=== PATIENT | male | born 1975 | race Caucasian/White ===

== ENCOUNTER 2016-10-02 08:43 | Emergency (ER) | payer OTHER ==
[~2016-10-02] VITALS: Wt 147.0 kg
[~2016-10-02 08:43] MED LIST: CHOL2000 PO; DIPH25TA68 PO; EPIN0.3P4 IM; FAMO20TA18 PO; GABA-526 PO; GLIP5TAB13 PO; METF850T PO; PRED20TA PO; SITA100T8 PO; ZIPR60CA6 PO
--- NOTE | 2016-10-02 10:20 | ERD ---
ER Documentation Chief Complaint Date/Time DATE: 10/02/16 TIME: 10:12 Chief Complaint pt awoke at 0600 with difficulty speaking due to involuntary tongue movemen HPI 41-year-old male presents to ED with symptoms of tongue sticking out and unable to speak clearly on and off for the last 4 hours. Patient stated that he had these symptoms once before, was given a EpiPen at that time. That was 1 year ago. Denies any tongue swelling, denies shortness of breath. Patient has history of diabetes is on insulin. He also has history of schizophrenia, is taking Geodon for many years. Denies exposure to new foods or new cleaning products. ROS All systems reviewed and are negative except as per history of present illness. Medications Home Meds Active Scripts Diphenhydramine Hcl (Benadryl Allergy) 25 Mg Tablet, 25 MG PO Q8 for 7 Days Prov:XIMENA LARA DO 03/31/15 Epinephrine (Epipen 2-Rajinder) 0.3 Mg/0.3 Ml Pen.injctr, 0.3 MG IM DIRECTED Y for ALLERGIC REACTION, #1 EA Prov:XIMENA LARA DO 03/31/15 Famotidine* (Famotidine*) 20 Mg Tablet, 20 MG PO BID, #30 TAB Prov:XIMENA LARA DO 03/31/15 Prednisone* (Prednisone*) 20 Mg Tab, 40 MG PO DAILY for 4 Days, TAB Prov:XIMENA LARA DO 03/31/15 Reported Medications Metformin Hcl* (Metformin Hcl*) 850 Mg Tablet, 850 MG PO BID WITH MEALS, TAB 03/31/15 Cholecalciferol* (Vitamin D3*) 2,000 Unit Cap, 2000 UNIT PO DAILY, CAP 03/31/15 Glipizide* (Glipizide*) 5 Mg Tablet, 5 MG PO BID, TAB 03/31/15 Ziprasidone* (Geodon*) 60 Mg Capsule, 60 MG PO BID, CAP 03/31/15 Gabapentin* (Gabapentin*) 600 Mg Tablet, 600 MG PO QHS, TAB 03/31/15 Sitagliptin* (Januvia*) 100 Mg Tablet, 100 MG PO DAILY, TAB 03/31/15 Allergies Allergies: Coded Allergies: No Known Allergy (Unverified , 03/31/15) PMhx/Soc History of Surgery: No Hx Cardiac Disorders: Yes Hx Psychiatric Problems: Yes (schizophrenia) Hx Alcohol Use: Yes Hx Substance Use: No Hx Tobacco Use: No Smoking Status: Former smoker Physical Exam Vitals Vital Signs Date Time Temp Pulse Resp B/P Pulse Ox O2 Delivery O2 Flow Rate FiO2 10/02/16 08:48 98.0 96 20 132/59 99 Physical Exam General impression: Well-developed, well-nourished. Alert, oriented, in no acute distress. Head: Normocephalic, atraumatic. Eyes: PERRL, EOM normal. Conjunctiva not injected. ENT: External canals clear. TM's pearly spencer. Nasal mucosa, oral mucosa and oropharynx are normal. Able to move his tongue in all directions on command. He is observed to alternately speak clearly, and speaking with no or little tongue movement. Neck: Supple, nontender. No lymphanopathy. No nuchal rigidity. Respiration: Normal respiratory effort. Lungs clear to auscultate bilaterally. No wheezes, rales or rhonchi. Cardiovascular: Regular rate and rhythm. No murmurs or extra heart sounds. Neuro: Mental status normal, speech normal. BULK STATION AGENT grossly intact. Skin: Normal turgor. No rash or lesions. Psych: Normal mood and affect. Procedures/MDM 41-year-old male with history of diabetes schizophrenia present ED with not able to move his tongue while speaking. On exam, he does not have any purposeful movement disorder. However he is observed to alternately able to speak normally, and speaking with little or no time movement. Given patient has multiyear history of Geodon use, I suspect this is one form of tardive dyskinesia. Patient does not have any airway swelling or shortness of breath. I doubt anaphylaxis or other allergic reaction. Patient advised to follow-up with his psychiatrist and PCP for further evaluation and treatment. Patient appears well, stable for discharge and outpatient management. Medical decision making shared with patient and family. Education provided to patient and family. Patient and family expressed understanding of the plan. Medications on discharge: None. Follow-up: Primary care provider in 2-3 days or return to ED if worse. Departure Diagnosis: Primary Impression: Tardive dyskinesia Condition: Stable Patient Instructions: Schizophrenia, General Referrals: [facility] Usted se contreras hecho un examen mdico de control que le indica que no est en lorena condicin que requiera tratamiento urgente en el Departamento de Emergencia. Un estudio ms profundo y el tratamiento de levine condicin pueden esperar sin ningn riesgo hasta que usted sea atendida/o en el consultorio de levine mdico o lorena cl berta. Es responsabilidad suya arreglar loerna rafat para el seguimiento del rohini. MANEJO DE CONDICIONES NO URGENTES EN EL FUTURO 1) Si usted tiene un mdico de atencin primaria: Usted debera llamar a levine mdico de atencin primaria antes de venir al departamento de emergencia. Despus de las horas de consultorio, levine doctor o levine asociado/a est disponible por telfono. El mdico o enfermero de bandar en el servicio telefnico puede asesorarle por blaire medio para atender el problema, o rohini contrario se puede programar lorena rafat. 2) Si usted no tiene un mdico de atencin primaria: Llame al mdico o clnica de referencia que aparece abajo richie las horas de consultorio para hacer lorena rafat para que le vean. CLINICAS: [facility] [phone] [facility] [phone] [facility]. [facility] [phone] [facility] [place] [id number] [phone] [facility] [place] [id number] [phone] [facility]. [phone] [address] Additional Instructions: Llame al doctor MAANA y christiano lorena RAFAT PARA DENTRO DE 2-3 BERNABE.Dgale a la secretaria que nosotros le instruimos hacer esta rafat.Avise o llame si levine condicin se empeora antes de la rafat. Regresa aqui si peor o no mejor. GABBI LAMAR. LALO Oct 02, 2016 10:19
[2016-10-03] MEDS ORDERED: ASPI-664 PO (13:50)
== END 2016-10-02 10:20 | disposition home or self-care (01) ==
LOC: FTE 08:43
DX: G24.01 Drug induced subacute dyskinesia (principal); E11.9 Type 2 diabetes mellitus without complications; T43.595A Adverse effect of other antipsychotics and neuroleptics, initial encounter; Z87.891 Personal history of nicotine dependence; Z79.4 Long term (current) use of insulin; Z79.84 Long term (current) use of oral hypoglycemic drugs
CPT/HCPCS: 99282

== ENCOUNTER 2016-10-02 17:21 | Inpatient (IN) | payer OTHER ==
[~2016-10-02] VITALS: Ht 180.3 cm; Wt 156.9 kg
[2016-10-02 23:15] VITALS: BP 112/63; RESP 18
[2016-10-02 23:16] VITALS: PULSE 89
[2016-10-02 23:33] VITALS: Ht 180.3 cm; Wt 156.9 kg
[2016-10-03] VITALS (8 sets, daily range): BP systolic 117–131; BP diastolic 64–76; PULSE 83–98; RESP 16–18
[2016-10-03] MEDS ORDERED: GLUCOSE GEL 15 GRAM TUBE PO PRN ×2 (00:30)
[2016-10-03] MEDS ORDERED: GLUCOSE GEL 15 GRAM TUBE BUCCAL PRN (00:30)
[2016-10-03] MEDS ORDERED: DEXTROSE 50% 50 ML SYRINGE IV PRN ×2 (00:30)
[2016-10-03] MEDS ORDERED: GLUCAGON 1 MG INJ IM PRN (00:30)
[2016-10-03] MEDS ORDERED: ACCUCHECK XX SCH (02:00)
[2016-10-03] MEDS ORDERED: DIPHENHYDRAMINE 25 MG CAP PO SCH (06:00)
[2016-10-03] MEDS ORDERED: DIPHENHYDRAMINE 25 MG CAP PO PRN (06:00)
[2016-10-03 07:12] LABS: BASOPHILS % 0.4 % (0.0-2.0); EOSINOPHILS # 0.1 10^3/ul (0.0-0.5); EOSINOPHILS % 1.2 % (0.0-7.0); HEMATOCRIT 43.7 % (42.0-52.0); HEMOGLOBIN 14.9 g/dl (14.0-18.0); LYMPHOCYTES # 1.7 10^3/ul (0.8-2.9); LYMPHOCYTES % 16.2 % (15.0-51.0); MEAN CORPUSCULAR HEMOGLOBIN 31.5 pg (29.0-33.0); MEAN CORPUSCULAR HGB CONC 34.1 g/dl (32.0-37.0); MEAN CORPUSCULAR VOLUME 92.2 fl (82.0-101.0); MONOCYTE # 0.5 10^3/ul (0.3-0.9); MONOCYTES % 4.8 % (0.0-11.0); NEUTROPHIL # 8.2 10^3/ul (1.6-7.5); NEUTROPHILS % 77.4 % (39.0-77.0); PLATELET COUNT 285 10^3/UL (140-440); RED BLOOD COUNT 4.74 10^6/ul (4.70-6.10); UNCORRECTED WBC 10.6 10^3/ul (4.8-10.8); WHITE BLOOD COUNT 10.6 10^3/ul (4.8-10.8)
[2016-10-03 07:18] LABS: CONDITION 1
[2016-10-03 07:19] LABS: POTASSIUM 4.3 mmol/L (3.5-5.1)
[2016-10-03 07:21] LABS: CREATININE 0.59 mg/dl (0.61-1.24)
[2016-10-03 07:22] LABS: CALCIUM 8.7 mg/dl (8.4-10.2); MAGNESIUM 1.8 mg/dl (1.7-2.5)
[2016-10-03] MEDS ORDERED: metFORMIN 850 MG TAB PO SCH (07:55)
[2016-10-03] MEDS: INSULIN ASPART [NOVOLOG] 3 ML PEN SC SCH ×2 (08:00→11:30)
[2016-10-03] MEDS ORDERED: LINAGLIPTIN 5 MG TABLET PO SCH (09:00)
[2016-10-03] MEDS ORDERED: NICOTINE (21 MG/24 HR) PATCH TRANSDERM SCH (09:00)
[2016-10-03] MEDS ORDERED: ZIPRASIDONE 20 MG CAP PO SCH (09:00)
[2016-10-03] MEDS ORDERED: CHOLECALCIFEROL 2,000 UNIT CAP PO SCH (09:00)
[2016-10-03] MEDS ORDERED: ENOXAPARIN 40 MG/0.4 ML SYG SC SCH (09:00)
[2016-10-03] MEDS ORDERED: glipiZIDE 5 MG TAB PO SCH (09:00)
[2016-10-03] MEDS ORDERED: FAMOTIDINE 20 MG TAB PO SCH (09:00)
--- NOTE | 2016-10-03 09:16 | RADRPT ---
PROCEDURE: US Carotids. CLINICAL INDICATION: bruit , TIA TECHNIQUE: Multiple sonographic of the carotid bifurcation region and vertebral arteries were obta ined utilizing chambers scale, duplex and color-flow imaging. The images were reviewed on a PACS worksta tion. COMPARISON: No prior studies are available for comparison. FINDINGS: Evaluation of the right carotid bifurcation region reveals no significant calcific atherosclerotic d isease. Evaluation of the left carotid bifurcation region reveals no significant calcific atherosclerotic di sease. There is antegrade flow within the vertebral arteries bilaterally. RIGHT CAROTID MEASUREMENTS: Common Carotid [id number] (cm/sec) Internal Carotid Artery - [id number] (cm/sec) Internal Carotid Artery - mid68 (cm/sec) Internal Carotid Artery - (cm/sec) Internal Carotid/Common Carotid0.6 LEFT CAROTID MEASUREMENTS: Common Carotid Rfjzxg70 (cm/sec) Internal Carotid Artery - [id number] (cm/sec) Internal Carotid Artery - mid82 (cm/sec) Internal Carotid Artery - ikdllk20 (cm/sec) Internal Carotid/Common Carotid0.8 RPTAT: AA IMPRESSION: No evidence for hemodynamically significant stenosis in the bilateral internal carotid arteries - va lidated velocity measurements with angiographic measurements, velocity criteria are extrapolated fro m diameter data as defined by the Society of Radiologists in Ultrasound Consensus Conference Radiolo gy 2003; 229;340-346. This study does indirectly reference the measurement of the distal ICA diamet er as the denominator for stenosis measurement. Normal antegrade flow in the vertebral arteries bilaterally. .Stevo Lofton MD, MD Date Time Electronically viewed and signed by .Stevo Lofton MD, on 10/03/2016 09:15 .S/
--- NOTE | 2016-10-03 09:51 | HP ---
DATE OF ADMISSION: 10/02/2016 PRESENTING COMPLAINT: Slurred speech and headache. HISTORY OF PRESENTING COMPLAINT: This is a 41-year-old obese male with a past medical history of di abetes and schizophrenia and reports that early in the morning on the at about 6:00 a.m. he was outside, he had just had a cigarette and as he was returning into his home he started feeling normal in his tongue and felt his tongue swelling and developed dizziness as well as headache and family n oted slurred speech. Symptoms did not immediately resolve, but lasted a couple of hours until he go t to the emergency room at [facility], where he was assessed and scaled by NIS test stroke score as a 0. By that time he was feeling much better; however, there was concern for a TIA and since he was capitated to our hospital he was transferred to us for further workup and management. Initial evalua tion over there basically was negative for an acute stroke, but his urine tox screen was positive fo r amphetamines and his potassium level was found to be mildly elevated. PAST MEDICAL HISTORY: 1. Diabetes mellitus type 2. 2. Schizophrenia. 3. Chronic methamphetamine and marijuana user as well as tobacco. 4. Chronic diabetic neuropathy. 5. History of tongue swelling and numbness at least twice in the past, for which he has been seen i n our emergency room here and treated for allergies. PAST SURGICAL HISTORY: Patient denies. ALLERGIES: HE HAS NO KNOWN DRUG ALLERGIES. SOCIAL HISTORY: Essentially summarized above, positive for cocaine, marijuana and meth use, but no heroin use. REVIEW OF SYSTEMS: I did 12-point review of system, he has had no fever. He had no focal deficits. He had no numbness in the extremities that was new. He has no loss of bowel or bladder function. Denies palpitations as well. Denies abdominal pain. Denies nausea, denies vomiting, denies black s tools. Denies dysuria, also denies hematuria. FAMILY HISTORY: Positive for diabetes and high blood pressure. HOME MEDICATIONS: List reviewed and reconciled per medical records. PHYSICAL EXAMINATION: VITAL SIGNS: Temperature 98.5, pulse 101, respirations 17, blood pressure 117/64, saturations 94% o n room air. GENERAL: Obese male, alert and oriented, in no distress. HEENT: Head is normocephalic. Pupils are equal and reactive. Mucous membranes are moist. Tongue is not swollen at this time. Posterior pharynx is clear of exudate. Speech clear. There is no fac ial asymmetry. NECK: Supple, nontender. No JVD. CHEST: With reduced air entry, but this is likely secondary to his habitus without crackles or whee zing. CARDIOVASCULAR: S1 and 2 without murmurs. ABDOMEN: Obese, soft, nontender, nondistended with normoactive bowel sounds. EXTREMITIES: No lower extremity edema. NEUROLOGIC: No gross focal deficits. SKIN: No rash or jaundice. LABORATORY VALUES: I reviewed the labs that were sent to us from [facility] and as m entioned, a urine drug screen was positive for amphetamines. A head CT was negative. A potassium was 5.1, WBC 11.1. There was no EKG at this time for review, but on our heart monitor he does have norm al sinus rhythm with a rate of 81. IMAGING: Chest x-ray was reviewed over there and found to be unremarkable. ASSESSMENT: The following: A 41-year-old male with: 1. Acute episode of slurred speech, tongue swelling and numbness, associated with headache and dizz iness concerning for possible TIA. The patient has had similar symptoms in the past; however, that were not associated with headache an d dizziness and was treated for allergic reactions. 2. Diabetes mellitus type 2 with good control. The patient reports compliance with therapy. 3. Mild hyperkalemia. 4. Chronic schizophrenia, stable on Geodon. Patient denies hearing voices or suicidal or homicidal ideations. 5. Chronic diabetic neuropathy. 6. Multidrug substance abuse (cocaine, tobacco, alcohol, methamphetamines). PLAN OF CARE: 1. The patient will be admitted to the floor and TIA workup concluded with a 2D echo, bilateral car otid ultrasound as well as MRI of the brain. 2. We will focus on close diabetes monitoring and blood pressure control while in-house. 3. For his obesity he will be put on a calorie-controlled diet as well as a sliding scale insulin. 4. He will also be consulted with pediatric social worker to provide resources to assist with drug dependenc e and abuse. I have spoken with him about the need to quit drug use as well as tobacco use. We nissa l continue to reinforce this while in-house. 5. The patient will also benefit from neurology review. I will consult Dr. Solis to see the patient . Further interventions will depend on his clinical course. 6. For prophylaxis, he will be placed on Lovenox as well as Pepcid. Dictated By: DESIRAE TOWNSEND MD, BA/LEILANI Conf#: [id number] DID#: [id number]
[2016-10-03 09:55] LABS: OPIATES Negative (NEGATIVE)
[2016-10-03 09:56] LABS: CANNABINOIDS Negative (NEGATIVE)
[2016-10-03 09:57] LABS: COCAINE Negative (NEGATIVE)
[2016-10-03 09:58] LABS: BARBITURATES Negative (NEGATIVE); BENZODIAZEPINES Negative (NEGATIVE)
--- NOTE | 2016-10-03 13:48 | PDOCDIS ---
Discharge Instructions DIAGNOSIS Discharge Diagnosis: ?TIA. Substance abuse. CONDITION Patient Condition: Stable HOME CARE INSTRUCTIONS: Special Diet: 1800 tino FOLLOW UP/APPOINTMENTS Appointments Kaushik Marquez MD Specialty: Internal Medicine Office Address: [address] [place], [place] [id number] Office OTHER ORDERS: Other Orders: 1. Take a low-cholesterol, carbohydrate controlled diet. 2. Resume activities as tolerated. 3. Follow-up with your primary care physician 1 week. If you do not have a primary care physician, please call Dr. Kaushik Marquez's office. 4. Avoid tobacco and illicit drug use. 5. Resume home medications. JULIET NGO NP Oct 03, 2016 13:48
[2016-10-03] MEDS ORDERED: ASPI-664 PO (13:50)
[2016-10-03 14:08] LABS: CHOL/HDL RATIO 5.2 RATIO
--- NOTE | 2016-10-03 16:37 | DS ---
DATE OF ADMISSION: 10/02/2016 DATE OF DISCHARGE: 10/03/2016 FINAL DIAGNOSES: 1. Transient episode of speech disturbance. Completely resolved. Possible underlying transient ischemic attack. 2. Type 2 diabetes mellitus. 3. Morbid obesity. 4. Schizophrenia. 5. Diabetic neuropathy. 6. History of angioedema. 7. Substance abuse. HOSPITAL COURSE: This is a 41-year-old obese male with a past medical history of diabetes, schizophrenia, and obesity who went to the local emergency room on 10/02/2016, because of sudden onset of reported slurred speech. As per report, the patient was outside his home smoking a cigarette and he was returning to his home when he started feeling tongue swelling and developed dizziness as well as headache. The family noticed slurred speech. The patient's symptoms did not resolve. They lasted approximately a couple of hours until he got to the emergency room at [facility]. At the emergency room at [facility], the patient had no residual defects. The patient underwent a CT scan of the brain at [facility] that was negative for any acute intracranial findings. The patient was transferred to [facility] for further workup because of insurance reasons. The patient was admitted to inpatient telemetry floor. A carotid Doppler study was ordered. Baseline labs were obtained. A brain MRI was ordered. However, the patient is morbidly obese and does not fit in the MRI machine. Hence, this was canceled. Nevertheless, the patient's symptoms had completely resolved. It is unclear whether the patient had another anaphylactic reaction that caused angioedema with tongue swelling that caused the slurred speech versus the patient had extrapyramidal side effect related to his antipsychotic intake. The patient is also a current methamphetamine and cannabinoid abuser. The patient's symptomatology could have been a combination of multiple etiologies. It has been completely resolved. The patient's carotid Doppler study was negative for any hemodynamically significant stenosis. The patient was noticed to have some dyslipidemia. The patient has multiple comorbidities including diabetes, obesity and smoking, the patient ideally needed to be started on aspirin. The patient was started on aspirin. Since the patient cannot fit into the MRI machine at [facility], this was cancelled. The patient needs outpatient neurology followup if the patient continues to have these symptoms. At this time, the patient has no evidence of any acute stroke. Hence, the patient will be discharged home to be followed up with outpatient neurology. The patient has underlying type 2 diabetes mellitus. The patient's hemoglobin A1c was found to be 9.1. The patient was also noticed to have hypertriglyceridemia and dyslipidemia with low HDL. The patient has morbid obesity with a BMI of 48.2 kilograms per metered squared. He was advised on weight reduction. The patient also has underlying schizophrenia. The patient was maintained on mood stabilizers for the same. The patient had a stable hospital course. The patient is stable to be discharged home. DISCHARGE DISPOSITION/PLAN: The patient will be discharged home today. The patient was instructed to take a low-cholesterol, carbohydrate controlled diet. He was instructed to resume activities as tolerated. He was instructed to follow up with his primary care physician in one week. He was instructed to avoid tobacco and illicit drug use. He was instructed to resume his home medications. The patient verbalized understanding of the discharge instructions. CONDITION AT DISCHARGE: Stable. DISCHARGE MEDICATIONS: 1. Aspirin 81 mg p.o. daily. 2. Vitamin D3 2000 units p.o. daily. 3. Epinephrine 0.3 mg IM as directed for allergic reaction. 4. Famotidine 20 mg p.o. b.i.d. 5. Gabapentin 600 mg p.o. 6. Glipizide 5 mg p.o. b.i.d. 7. Metformin 850 mg p.o. b.i.d. 8. Januvia 100 mg p.o. daily. 9. Geodon 60 mg p.o. b.i.d. PERTINENT LABORATORY AND DIAGNOSTIC DATA: 1. Brain CT scan from [facility] negative for any acute intracranial findings. 2. Carotid Doppler study. No evidence of hemodynamically significant stenosis in the bilateral internal carotid arteries. 3. Latest CBC: WBC 10.6, hemoglobin 14.9, hematocrit 43.7, platelet count 385. 4. Latest BMP: Sodium 139, potassium 4.3, chloride 100, carbon dioxide 26, anion gap 18, BUN 10, creatinine 0.592, glucose 187, calcium 8.7, magnesium 1.8. 5. Hemoglobin A1c 9.1. 6. Fasting lipid panel: Triglycerides 230, total cholesterol 120, LDL 49, HDL 23. 7. Urine drug toxicology. Positive for amphetamine. The case and management of this patient was fully discussed with Dr. Steel. Approximately 35 minutes was spent on coordinating the discharge on this patient. JULIET STEEL MD, AM/LEILANI Conf#: [id number] DID#: [id number] MTDD
[2016-10-03] MEDS ORDERED: GABAPENTIN 300 MG CAP PO SCH (21:00)
--- NOTE | 2016-10-03 21:46 | RADRPT ---
Echocardiogram Report Patient Name: ZULY FISHER Gender: Male Date: 1975 Study Date: 03-Oct-2016 Sap Trainer: Cecy Rodríguez [facility] Location: 512B Ref. Physician: DESIRAE TOWNSEND Quality: Good Procedures: Transthoracic echocardiogram with complete 2D, M-Mode, and doppler examination. Indications: Transient Ischemic Attack. 2D/M Mode Doppler Measurement Value Normal Ranges Measurement Value Normal Ranges LVIDd 2D 5.7 3.5 - 5.6 cm AV Peak Wild 1.8 m/sec LVIDs 2D 3.7 2.1 - 4.1 cm AV Peak PG 12.0 mmHg FS 2D 34.7 % LVOT Peak Wild 1.2 m/sec LVPWd 2D 1.1 0.6 - 1.1 cm LVOT Peak PG 6.0 mmHg IVSd 2D 1.0 0.6 - 1.1 cm MV E Peak Wild 0.8 m/sec IVS/LVPW 2D 0.9 MV A Peak Wild 0.9 m/sec AoR Diam 2D 3.3 2.0 - 3.7 cm MV E/A 0.9 LA/Ao 2D 1 0 - 1 MV Decel Time 130 msec EDV 2D 188.0 cm3 MV E/A 0.9 ESV 2D 52.3 cm3 TR Peak Wild 2.5 m/sec LA Dimen 2D 3.9 2.3 - 4.0 cm TR Peak PG 25.0 mmHg RVSP 33.0 mmHg Findings Left Ventricle: Normal left ventricular systolic function. Normal left ventricular cavity size. Mild concentric left ventricular hypertrophy. Ejection fraction is visually estimated at 55 %. Tissue Doppler/Mitral Doppler indices are consistent with impaired relaxation (Stage I diastolic dysfunction). Right Ventricle: Normal right ventricular size. Normal right ventricular systolic function. Left Atrium: The left atrium is normal in size. Right Atrium: The right atrium is normal in size. Mitral Valve: Normal appearance and function of the mitral valve with trace physiologic regurgitation. Aortic Valve: No significant aortic stenosis or insufficiency. Aortic cusps appear mildly calcified. Tricuspid Valve: Normal appearance and function of the tricuspid valve with trace physiologic regurgitation. Estimated peak PA systolic pressure 33 mmHg. Pulmonic Valve: Pulmonic valve not well visualized. No evidence of pulmonic regurgitation. Pericardium: Normal pericardium with no significant pericardial effusion. Aorta: Normal aortic root. IVC: Dilated IVC with respiratory collapse consistent with elevated right atrial pressure. Conclusions Normal left ventricular systolic function. Normal left ventricular cavity size. Mild concentric left ventricular hypertrophy. Ejection fraction is visually estimated at 55 %. Tissue Doppler/Mitral Doppler indices are consistent with impaired relaxation (Stage I diastolic dysfunction). Normal right ventricular size. Normal right ventricular systolic function. The left atrium is normal in size. The right atrium is normal in size. No significant valvular stenosis or regurgitation seen. Normal pericardium with no significant pericardial effusion. Electronically Signed By: Keanu Allen 03-Oct-2016 21:45:36 -0800 Patient Name: ZULY FISHER Study Date: 03-Oct-2016 [id number]
== END 2016-10-03 16:20 | disposition home or self-care (01) | DRG 69 ==
LOC: TEL 23:04
PROVIDERS: ADMIT Family Medicine; ATTEND Family Medicine
DX: G45.9 Transient cerebral ischemic attack, unspecified (principal); E11.40 Type 2 diabetes mellitus with diabetic neuropathy, unspecified; Z68.42 Body mass index [BMI] 45.0-49.9, adult; E66.01 Morbid (severe) obesity due to excess calories; F20.9 Schizophrenia, unspecified; F14.10 Cocaine abuse, uncomplicated; F15.10 Other stimulant abuse, uncomplicated; F10.10 Alcohol abuse, uncomplicated; Z79.82 Long term (current) use of aspirin
CPT/HCPCS: 80048; 80061; 80307; 82962; 83036; 83735; 85025; 87081; 93306; 93880; J1650; J1815

== ENCOUNTER 2019-04-24 07:27 | Emergency (ER) | payer OTHER ==
[~2019-04-24] VITALS: Ht 188 cm
[~2019-04-24 07:27] MED LIST changes: +ASPI-817 PO; +IBUP-1542 PO; +METF100010 ORAL; -METF850T PO; +METF850T13 PO; -PRED20TA PO; +SIMV20TA20 ORAL; +SITA100T11 PO; -SITA100T8 PO; +ZIPR60CA2 PO; -ZIPR60CA6 PO
[2019-04-24 07:33] VITALS: Ht 188 cm
[2019-04-24] MEDS ORDERED: ONDANSETRON 4 MG INJ IV STA (07:41)
[2019-04-24] MEDS ORDERED: SOD CHLORIDE 0.9% 1,000 ML IV STA (07:41)
[2019-04-24] MEDS ORDERED: FENTAnyl 50 MCG/ML VIAL IV ONE (08:00)
[2019-04-24] MEDS ORDERED: PROPOFOL 100 ML IV ONE (08:30)
[2019-04-24 10:00] VITALS: BP 131/78; PULSE 101; RESP 18
== END 2019-04-24 10:05 | disposition home or self-care (01) ==
LOC: E/R 07:27
DX: S43.004A Unspecified dislocation of right shoulder joint, initial encounter (principal); I10 Essential (primary) hypertension; E11.9 Type 2 diabetes mellitus without complications; E66.01 Morbid (severe) obesity due to excess calories; X58.XXXA Exposure to other specified factors, initial encounter; Y92.9 Unspecified place or not applicable; Z79.84 Long term (current) use of oral hypoglycemic drugs
CPT/HCPCS: 23650; 71045; 73030; 80053; 83690; 85025; 93005; 94770; 96374; J2405; J3010; J7030; Z7502; Z7610